=== PATIENT | female | born 1975 | race Caucasian/White ===

== ENCOUNTER 2024-01-30 09:17 | Day surgery (SDC) | payer OTHER ==
[2024-01-24 13:30] VITALS: BP 130/90
[~2024-01-30] VITALS: Ht 167.6 cm; Wt 99.0 kg
[~2024-01-30 09:17] MED LIST: ACETAMINOPHEN 1,000 MG/100 ML VIAL ONE; CALCIUM500 MG PO; CEFAZOLIN SODIUM 2 GM/20 ML SYR IV SCH; DAILY VALUE1 EACH PO; DIGESTIVE ENZY1 EAC2 PO; ESZOPICLONE2 MG PO; HYDROmorphone HCL 1 MG/ML SYR IV PRN; IBLOOD GLUCOSE TEST STRIP 1 EA TEST VI PRN; KETOROLAC TROMETHAMINE 15 MG/ML VIAL IV PRN; LACTATED RINGER'S 1,000 ML IV SCH; LIDOCAINE HCL 1% 5 ML SDV INJ ONE; LIDOCAINE HCL 2% 5 ML SDV ONE; LUNESTA3 MG PO; MAGNESIUM100 MG PO; MAGNESIUM250 MG PO; OMEGA 3 FISH O1 EACH PO; OXYCODONE/APAP 5/325 TAB PO PRN; TRAMADOL HCL 50 MG TAB PO PRN; TRAMADOL HCL50 MG PO; TRAZODONE HCL50 MG PO; VITAMIN B121000 MCG PO; [UNRECOGNIZED DRUG - OTHER] PO; fentaNYL citrate 100 MCG/2 ML VIAL ONE; ondansetron HCL 4 MG/2 ML VIAL IV PRN; ondansetron HCL 4 MG/2 ML VIAL ONE; propofoL 200 MG/20 ML VIAL ONE
[2024-01-30 09:26] VITALS: BP 132/81
[2024-01-30] MEDS ORDERED: IBLOOD GLUCOSE TEST STRIP 1 EA TEST VI PRN (10:15)
[2024-01-30] MEDS ORDERED: NALOXONE HCL 0.4 MG SYR IV PRN (10:15)
[2024-01-30] MEDS ORDERED: droPERidol 5 MG/2 ML VIAL IV PRN (10:15)
[2024-01-30] MEDS ORDERED: fentaNYL citrate 50 MCG/ML SDV IV PRN (10:15)
[2024-01-30] MEDS ORDERED: PROCHLORPERAZINE EDISYLATE 10 MG/2 ML VIAL IV PRN (10:15)
[2024-01-30] MEDS ORDERED: ondansetron HCL 4 MG/2 ML VIAL IV PRN (10:15)
[2024-01-30] MEDS ORDERED: DEXAMETHASONE SOD PHOS 4 MG/ML VIAL ONE ×2 (10:59)
[2024-01-30] MEDS ORDERED: KETOROLAC TROMETHAMINE 30 MG/ML VIAL ONE (11:09)
[2024-01-30] MEDS ORDERED: propofoL 200 MG/20 ML VIAL ONE (11:28)
[2024-01-30 12:12] VITALS: BP 97/62
--- NOTE | 2024-01-30 12:28 | NUR ---
01/30/24 1228 Shaniqua Gordon 1148 PT ARRIVED IN PACU AWAKE WITH NO C/O'S. 1200 SITTING UP IN BED SIPPING ON WATER. 1205 C/O URGE TO VOID. UP TO BATHROOM WITH ONE PERSON ASSIST. VOIDED 400ML CLEAR URINE. 1210 BACK AT BEDSIDE GETTING DRESSED. 1219 DC INSTRUCTIONS GIVEN. ALL QUESTIONS ANSWERED. LEFT VIA W/C.
== END 2024-01-30 12:19 | disposition home or self-care (01) ==
LOC: DS 09:17 → OPS 09:17 → DS 11:50 → OPS 12:19
PROVIDERS: ATTEND Urology
PROC: 3E0K8GC Introduction of Other Therapeutic Substance into Genitourinary Tract, Via Natural or Artificial Opening Endoscopic (ICD-10-PCS; principal; 2024-01-30 11:00)
DX: N36.42 Intrinsic sphincter deficiency (ISD) (principal); N39.3 Stress incontinence (female) (male)
CPT/HCPCS: 00910; 36415; 84703; J0131; J0690; J1100; J1885; J2003; J2405; J2704; J3010; J7121; L8606

== ENCOUNTER 2025-01-07 06:30 | Day surgery (SDC) | payer OTHER ==
[~2025-01-07] VITALS: Ht 167.6 cm; Wt 95.0 kg
[~2025-01-07 06:30] MED LIST changes: -ACETAMINOPHEN 1,000 MG/100 ML VIAL ONE; -CEFAZOLIN SODIUM 2 GM/20 ML SYR IV SCH; -HYDROmorphone HCL 1 MG/ML SYR IV PRN; -IBLOOD GLUCOSE TEST STRIP 1 EA TEST VI PRN; -KETOROLAC TROMETHAMINE 15 MG/ML VIAL IV PRN; -LACTATED RINGER'S 1,000 ML IV SCH; -LIDOCAINE HCL 1% 5 ML SDV INJ ONE; -LIDOCAINE HCL 2% 5 ML SDV ONE; +MACROBID 100 M100 MG PO; +MIDAZOLAM HCL 5 MG/5 ML VIAL IV PRN; -OXYCODONE/APAP 5/325 TAB PO PRN; -TRAMADOL HCL 50 MG TAB PO PRN; +fentaNYL citrate 100 MCG/2 ML VIAL IV PRN; -fentaNYL citrate 100 MCG/2 ML VIAL ONE; -ondansetron HCL 4 MG/2 ML VIAL IV PRN; -ondansetron HCL 4 MG/2 ML VIAL ONE; -propofoL 200 MG/20 ML VIAL ONE
[2025-01-07 06:46] VITALS: BP 143/77
[2025-01-07] MEDS ORDERED: LYLLANA TD (06:50)
[2025-01-07] MEDS ORDERED: PROGESTERONE100 MG PO (06:50)
[2025-01-07] MEDS ORDERED: POTASSIUM CHLO20 ME2 PO (06:52)
[2025-01-07] MEDS ORDERED: MIDAZOLAM HCL 5 MG/5 ML VIAL ONE (06:59)
[2025-01-07] MEDS ORDERED: fentaNYL citrate 100 MCG/2 ML VIAL ONE (06:59)
[2025-01-07] MEDS ORDERED: IBLOOD GLUCOSE TEST STRIP 1 EA TEST VI PRN (07:00)
[2025-01-07] MEDS ORDERED: LACTATED RINGER'S 1,000 ML IV SCH (07:00)
[2025-01-07] MEDS ORDERED: LIDOCAINE HCL 1% 5 ML SDV INJ ONE (07:00)
--- NOTE | 2025-01-07 08:37 | NUR ---
01/07/25 0837 Emily Briscoe 0830- PT ARRIVES TO PACU, SUPINE POSITION, AWAKE BUT DROWSY. DENIES PAIN OR NAUSEA, ENCOURAGED TO PASS GAS. BREATHING EVEN AND NON LABORED ON 3L O2 PER NC. LR INFUSING TO RH. ABD SOFT, NON DISTENDED. ALL MONITORS IN PLACE. 0834- PT BACK TO RESTING, NO SIGNS OF DISTRESS, MOVED TO ROOM AIR AT THIS TIME.
[2025-01-07 08:47] VITALS: BP 135/79
--- NOTE | 2025-01-09 14:52 | OR ---
[facility] [address] [place], [place] [address] Signed DATE OF OPERATION: 01/07/2025 SURGEON: Leilani Love MD PREOPERATIVE DIAGNOSIS: Colon screening. POSTOPERATIVE DIAGNOSIS: Small polyps x2. PROCEDURE: Total colonoscopy to cecum with cold morcellation polypectomy x2. ANESTHESIA: Intravenous sedation; fentanyl 100 mcg and Versed 10 mg. INDICATION: This 49-year-old white woman is a patient of Bre Ruiz, who last underwent colonoscopy 11 years ago. She has no current symptoms of bleeding, diarrhea, or constipation and no family history of colon cancer. She is here for screening colonoscopy based on interval of time since the last colonoscopy. She understands the risk of bleeding, infection, and perforation related to colonoscopy and wished to proceed. FINDINGS: The prep was excellent. Complete colonoscopy was undertaken of the cecum with full intubation of the cecum. There was a small polyp in the right colon and diminutive polyp of the rectosigmoid, both excised completely with cold morcellation technique. The remaining colon was otherwise normal. DESCRIPTION OF PROCEDURE: The patient was brought to the endoscopy suite and placed in the lateral decubitus position, given intravenous sedation to the point of slurred speech and nystagmus. Digital rectal examination was normal. An Olympus video colonoscope was passed in the rectum and manipulated throughout the colon ultimately intubating the cecum itself. The ileocecal valve and appendiceal orifice were normal. The scope was withdrawn. In the mid ascending colon, there was a small sessile polyp, this was excised with cold morcellation technique completely. Further withdrawal showed no other abnormality into the rectosigmoid where a diminutive Electronically Signed By: LEILANI LOVE MD 01/09/25 1452 PATIENT NAME: ARLEY KANG OPERATIVE REPORT DATE OF : 71 REPORT #: [id number] PHYSICIAN: LEILANI LOVE MD PCP: BRE RUIZ PA-C REPORT IS CONFIDENTIAL AND NOT TO BE RELEASED WITHOUT AUTHORIZATION [address] [address] Signed polyp was noted, this was excised with cold morcellation as well. Retroflexed view was normal. The scope was removed and the patient was taken to the recovery room in good condition. CONCLUDING DIAGNOSIS: Small polyps x2. PLAN: Recommend repeat colonoscopy in 10 years, sooner if symptoms should develop. She will return to the ongoing care of Bre Ruiz PA-C. MD ARNOLDO Quach/SHAE /[id number] cc: Bre Ruiz PA-C Copies: BRE RUIZ PA-C ~ Electronically Signed By: LEILANI LOVE MD 01/09/25 1452 PATIENT NAME: ARLEY KANG OPERATIVE REPORT DATE OF : 71 REPORT #: [id number] PHYSICIAN: LEILANI LOVE MD PCP: BRE RUIZ PA-C REPORT IS CONFIDENTIAL AND NOT TO BE RELEASED WITHOUT AUTHORIZATION
--- NOTE | 2025-01-14 11:31 | PATH ---
[facility] [address] [place], [place] [address] Signed SPECIMEN(S): A ASCENDING COLON POLYP SPECIMEN(S): B SIGMOID POLYP SPECIMEN SOURCE: A. ASCENDING COLON POLYP B. SIGMOID POLYP CLINICAL HISTORY: Screening. Polyps x 2. FINAL PATHOLOGIC DIAGNOSIS: A. Ascending/right polypectomy: - Sessile serrated adenoma B. Sigmoid polyp: - Hyperplastic polyp BB MICROSCOPIC EXAMINATION: Histologic sections of all submitted blocks are examined by light microscopy. These findings, together with the gross examination, support the pathologic diagnosis. GROSS DESCRIPTION: A. The specimen, labeled and designated "Petr Kang, 1." and designated on the requisition "ascending/right polypectomy," is received in formalin and consists of three estevez soft tissue fragments that measure 0.2-0.7 cm in greatest dimension. The specimen is entirely submitted in (A1). B. The specimen, labeled and designated "Petr Kang, 2." and designated on the requisition "sigmoid polypectomy," is received in formalin and consists of two estevez soft tissue fragments that measure 0.4 and 0.5 cm in greatest dimension. The specimen is entirely submitted in (B1). FB (under the direct supervision of a pathologist) The Gross Description was prepared using a voice recognition system. The report was reviewed for accuracy; however, sound-alike word errors, addition and/or deletions may occur. If there is any question about this report, please contact Client Services. ADDITIONAL NOTES: Immunohistochemical and/or in situ hybridization studies if performed in this PATIENT NAME: ARLEY KANG PATHOLOGY DATE OF : 71 REPORT #: [id number] PHYSICIAN: HERMES SANTIAGO PCP: DEEJAY FLORES PA-C REPORT IS CONFIDENTIAL AND NOT TO BE RELEASED WITHOUT AUTHORIZATION [facility] [address] [place], [place] [address] Signed case included appropriate positive controls that reacted as expected. This test was developed and its performance characteristics determined by [facility]. It has not been cleared or approved by the U.S. Food and Drug Administration. The FDA has determined that such clearance or approval is not necessary. This test is used for clinical purposes. It should not be regarded as investigational or for research. [facility] is certified under the Clinical Laboratory Improvement Amendments of 1988 (CLIA) as qualified to perform high complexity clinical laboratory testing. PERFORMING LABORATORY: Technical component was performed by [facility], [address] [place] [address] (CLIA# [id number]). Professional interpretation was performed by [facility] [place] [address] (CLIA#: [id number]). Diagnostician: Bruce Sheth MD Pathologist Electronically Signed 01/14/2025 Copies: ~ PATIENT NAME: ARLEY KANG PATHOLOGY DATE OF : 71 REPORT #: [id number] PHYSICIAN: HERMES SANTIAGO PCP: DEEJAY FLORES PA-C REPORT IS CONFIDENTIAL AND NOT TO BE RELEASED WITHOUT AUTHORIZATION
== END 2025-01-07 09:00 | disposition home or self-care (01) ==
LOC: DS 06:30 → OPS 06:30
PROVIDERS: ATTEND Surgery
PROC: 0DBN8ZX Excision of Sigmoid Colon, Via Natural or Artificial Opening Endoscopic, Diagnostic (ICD-10-PCS; 2025-01-07)
PROC: 0DBK8ZX Excision of Ascending Colon, Via Natural or Artificial Opening Endoscopic, Diagnostic (ICD-10-PCS; principal; 2025-01-07 07:30)
DX: Z12.11 Encounter for screening for malignant neoplasm of colon (principal); D12.2 Benign neoplasm of ascending colon; K63.5 Polyp of colon; Z88.8 Allergy status to other drugs, medicaments and biological substances
CPT/HCPCS: 99153; G0500; J2250; J3010; J7121